=== PATIENT | female | born 1940 | race Caucasian/White ===

== ENCOUNTER 2020-10-27 11:01 | Emergency (ER) | payer MEDICARE ==
[~2020-10-27] VITALS: Ht 160 cm; Wt 62.1 kg
[2020-10-27] MEDS ORDERED: LEVOTHYROXINE13 MCG PO (12:06)
[2020-10-27] MEDS ORDERED: PAXIL10 MG PO (12:06)
[2020-10-27] MEDS ORDERED: REMERON30 MG PO (12:07)
[2020-10-27] MEDS ORDERED: PEPCID20 MG PO (12:07)
[2020-10-27] MEDS ORDERED: TRAZODONE HCL100 MG PO (12:08)
[2020-10-27] MEDS ORDERED: MULTI VITAMIN1 EACH PO (12:08)
[2020-10-27] MEDS ORDERED: ZOFRAN4 MG PO (14:48)
--- NOTE | 2020-10-27 17:45 | EKG ---
[facility] [address] [facility] [place], [place] [address] Signed AV dual-paced rhythm with frequent ventricular-paced complexes Abnormal ECG No previous ECGs available Confirmed by SEA SANDOVAL MD ([id number]) on 10/27/2020 5:45:38 PM Electronically Signed By: SEA SANDOVAL MD 10/27/20 1745 PATIENT NAME: SHARAD SCANLON Electrocardiogram DATE OF : 44 PHYSICIAN: SEA SANDOVAL MD REPORT #: [id number] REPORT IS CONFIDENTIAL AND NOT TO BE RELEASED WITHOUT AUTHORIZATION
== END 2020-10-27 15:17 | disposition home or self-care (01) ==
LOC: ED 11:01
DX: K92.0 Hematemesis (principal); K21.9 Gastro-esophageal reflux disease without esophagitis; Z79.899 Other long term (current) drug therapy
CPT/HCPCS: 36415; 74022; 80053; 81001; 83690; 84484; 85025; 85610; 85730; 93005; 93010; 99284-25; J7030

== ENCOUNTER 2020-12-26 11:37 | Emergency (ER) | payer MEDICARE ==
[~2020-12-26] VITALS: Ht 160 cm; Wt 62.1 kg
[~2020-12-26 11:37] MED LIST: LEVOTHYROXINE13 MCG PO; MULTI VITAMIN1 EACH PO; PAXIL10 MG PO; PEPCID20 MG PO; REMERON30 MG PO; TRAZODONE HCL100 MG PO; ZOFRAN4 MG PO
[2020-12-26] MEDS ORDERED: REMERON15 MG PO (11:58)
[2020-12-26] MEDS ORDERED: ZOLOFT100 MG PO (11:58)
--- NOTE | 2020-12-26 15:13 | EKG ---
[facility] [address] [place] [address] Signed Atrial-sensed ventricular-paced rhythm Abnormal ECG When compared with ECG of 27-OCT-2020 13:55, Vent. rate has decreased BY 12 BPM Confirmed by SEA SANDOVAL MD ([id number]) on 12/26/2020 3:13:16 PM Electronically Signed By: SEA SANDOVAL MD 12/26/20 1513 PATIENT NAME: SHARAD SCANLON MANUEL Electrocardiogram DATE OF : 44 PHYSICIAN: SEA SANDOVAL MD REPORT #: [id number] REPORT IS CONFIDENTIAL AND NOT TO BE RELEASED WITHOUT AUTHORIZATION
== END 2020-12-26 17:00 | disposition short-term general hospital (02) ==
LOC: ED 11:37
DX: I50.9 Heart failure, unspecified (principal); R77.8 Other specified abnormalities of plasma proteins; K21.9 Gastro-esophageal reflux disease without esophagitis; Z79.899 Other long term (current) drug therapy
CPT/HCPCS: 71045; 80053; 83690; 83735; 83880; 84484; 85025; 93005; 93010; 99285-25; C9803; U0003

== ENCOUNTER 2021-01-01 14:47 | Emergency (ER) | payer MEDICARE ==
[~2021-01-01] VITALS: Ht 160 cm; Wt 62.1 kg
[~2021-01-01 14:47] MED LIST changes: +REMERON15 MG PO; +ZOLOFT100 MG PO
[2021-01-01] MEDS ORDERED: CEFDINIR300 MG PO (15:12)
[2021-01-01] MEDS ORDERED: ATORVASTATIN CA80 MG PO (15:12)
[2021-01-01] MEDS ORDERED: LEVOTHYROXINE137 MC1 PO (15:13)
[2021-01-01] MEDS ORDERED: LISINOPRIL2.5 MG PO (15:13)
[2021-01-01] MEDS ORDERED: LASIX20 MG PO (15:13)
[2021-01-01] MEDS ORDERED: MIRTAZAPINE7.5 MG PO (15:15)
[2021-01-01] MEDS ORDERED: METOPROLOL SUCC25 MG PO (15:15)
[2021-01-01] MEDS ORDERED: SERTRALINE HCL50 MG PO (15:15)
[2021-01-01] MEDS ORDERED: QUETIAPINE FUMA25 MG PO (15:15)
[2021-01-01] MEDS ORDERED: SERTRALINE HCL100 MG PO (15:15)
[2021-01-01] MEDS ORDERED: SPIRONOLACTONE50 MG PO (15:16)
[2021-01-01] MEDS ORDERED: PANTOPRAZOLE SO40 MG PO (15:16)
[2021-01-01] MEDS ORDERED: LORAZEPAM0.5 MG PO (15:16)
[2021-01-01] MEDS ORDERED: ONDANSETRON ODT4 MG PO (16:23)
== END 2021-01-01 16:33 | disposition home or self-care (01) ==
LOC: ED 14:47
DX: R18.8 Other ascites (principal); K21.9 Gastro-esophageal reflux disease without esophagitis; Z79.899 Other long term (current) drug therapy
CPT/HCPCS: 99283

== ENCOUNTER 2021-02-04 22:01 | Observation (INO) | payer MEDICARE ==
[~2021-02-04] VITALS: Ht 160 cm; Wt 59.8 kg
--- NOTE | ~2021-02-04 | EKG ---
[facility] [address] [facility] [place], [place] [address] Draft EK completed, results pending confirmation PATIENT NAME: SYLWIATYSHARAD Electrocardiogram DATE OF : 44 PHYSICIAN: PRELIMINARY REPORT #: [id number] REPORT IS CONFIDENTIAL AND NOT TO BE RELEASED WITHOUT AUTHORIZATION
[~2021-02-04 22:01] MED LIST changes: +ATORVASTATIN CA80 MG PO; +CEFDINIR300 MG PO; +LASIX20 MG PO; +LEVOTHYROXINE137 MC1 PO; +LISINOPRIL2.5 MG PO; +LORAZEPAM0.5 MG PO; +METOPROLOL SUCC25 MG PO; +MIRTAZAPINE7.5 MG PO; +ONDANSETRON ODT4 MG PO; +PANTOPRAZOLE SO40 MG PO; +QUETIAPINE FUMA25 MG PO; -REMERON15 MG PO; +SERTRALINE HCL100 MG PO; +SERTRALINE HCL50 MG PO; +SPIRONOLACTONE50 MG PO
--- NOTE | 2021-02-05 03:48 | NUR ---
PT ARRIVED TO ROOM 127 AT 0235 VIA STRETCHER. PT ABLE TO STAND AND TRANSFER TO BED WITH 1-PA. PT IS ALERT, SLIGHTLY FORGETFUL OF DATE, BUT IS OTHERWISE ORIENTED. SLOW TO RESPOND TO QUESTIONS, FLAT AFFECT. DENIES PAIN. LUNGS CLEAR, RA. HR PACED. BOWEL TONES ACTIVE, ABDOMEN MODERATELY DISTENDED. SKIN APPEARS GROSSLY INTACT EXCEPT A SKIN TEAR TO RIGHT DORSAL HAND. NO EDEMA NOTED. IV INTACT AND PATENT. PT REPORTS THAT SHE HAS LOST WEIGHT UNINTENTIONALLY DUE TO LOSS OF APPETITE AND FREQUENT NAUSEA. PT REPORTS FEELING HUNGRY AT THIS TIME, ATE ~50% OF LUNCH BOX. SHE IS WORRIED ABOUT BECOMING NAUSEATED, PRN ZOFRAN GIVEN PROPHYLACTICALLY. BAIT MAN CONSULT ORDERED. BED ALARM SET FOR SAFETY. CALL LIGHT WITHIN REACH.
--- NOTE | 2021-02-05 04:59 | NUR ---
PT RESTING IN BED, NO APPARENT DISTRESS. RESPIRATIONS EVEN AND UNLABORED. HR:73, RR:13, SPO2:96% ON RA.
--- NOTE | 2021-02-05 06:08 | NUR ---
IN TO CHECK ON PT WHO IS AWAKE AT THIS TIME. UP TO BSC WITH 1-PA, PT IS SLIGHTLY UNSTEADY ON FEET. PT ABLE TO VOID 150ML AND PROVIDE OWN PERICARE. PT BACK TO BED, BED ALARM SET FOR SAFETY.
--- NOTE | 2021-02-05 08:00 | NUR ---
Spoke with Nataliia, very flat affect. States she has problems and want her life to be done. Spouse passed last June and she no longer wants to live. Pt also has ascities and this is uncomfortable. [place], feels there is something wrong with her as she feels she cannot love. Discussed counseling and grief. She did have an eval from [facility] yesterday and is schedule for counseling February 21. I was a kristin to speak with the daughter and she states pt has dementia and would d like a work up for this. Discussed she will need to go through her pcp and they can arrange this. She is also wanting HH, we discussed pt would not qualify as she has a cg who takes her out for walks and she really is not in need of PT. I suggested she discuss this with pcp in case pt declines. They both deny financial issues as pt has a trust to pay for a cg and she lives with her daughter. I spoke with CCU staff and they will schedule an appt for pt to see Dr. Jacques and request visit with neurology and HH.
--- NOTE | 2021-02-05 08:08 | NUR ---
pt reports nausea at this time. pt also reports that she normally takes mirilax daily for cronic constipation. pt talking with Shelby from discharge planning.
--- NOTE | 2021-02-05 08:16 | NUR ---
PT IS LAYING IS LAYING IN BED. SHE IS VERY SLOW TO RESPOND TO QUESTIONS. REPORTED SOME NAUSEA AND WE WILL BE WORKING WITH HER DOCTOR TO ORDER AN ADDITONAL ANTIEMTIC, DUE TO HER PRN ZOFRAN NOT BEING AVAIABLE TO HER TILL 0940. DOES NOT DESIRE TO HAVE BREASKFAST AT THIS TIME. WATER AT BEDSIDE TABLE. CALL LIGHT WITHIN REACH.
[2021-02-05] MEDS ORDERED: SEROQUEL100 MG PO (08:31)
--- NOTE | 2021-02-05 09:00 | NUR ---
PT GIVEN ANTIEMETIC MEDICATION. REQUESTED BREAKFAST APPETITE HAS IMPROVED. PT IS SITTING UP IN BED.
--- NOTE | 2021-02-05 10:30 | NUR ---
PATIENT WAS ABLE TO AMBULATE WITH STANDBY ASSIST TO THE RESTROOM. GIVEN ORAL CARE SUPPLIES AND SHE WAS ABLE TO PERFORM CARE INDEPENDELNTY WITH GUIDED ASSIST FROM THE NURSE. SHE NEEDS CUES WHEN PERFROMING CERTAIN ACTIVITES SHE SEEMS FORGETFUL. LINEN HAS BEEN CHANGED AND REPLACED WITH NEW ONES. PT AMBULATED WITH SBA TO THE CHAIR IN ROOM. WATER AT SIDE TABLE. CALL LIGHT WITHIN REACH.
--- NOTE | 2021-02-05 12:20 | NUR ---
PT WORKED WITH THE PHYSICAL THERAPIST AND WALKED DOWN THE HALLWAY AND BACK TO HER ROOM. PT IS SITTING IN CHAIR. REPORTS OF DECREASED NAUSEA AT THIS TIME. DAUGHTER IN THE ROOM SITTING BY HER ON THE COUCH. PHYSICAL THERPAIST RECOMMENDED A WALKER TO BE USED WHEN SHE ABULATES SHE WAS A SLIGHTLY UNSTEADY DURING HER EXERCISES. WALKER PLACED IN ROOM. CALL LIGHT WITHIN REACH. PT DOES NOT DESIRE TO VOID AT THIS TIME. PT DOES NOT REPORT ANY PAIN.
--- NOTE | 2021-02-05 12:33 | NUR ---
PT MEDICATION COMPLETED, IS NOW SALINE LOCKED. CALL LIGHT WITHIN REACH.
--- NOTE | 2021-02-05 13:07 | NUR ---
PT NOW REPORTS SLIGHT NAUSEA. ZOFRAN IV ADMINISTERED. SHE IS SITTING UP IN THE CHAIR AND IS ABLE TO EAT WITHOUT DIFFICULTY. HAS REQUESTED SALT PACKETS FOR HER FOOD BUT GAVE HER DRESSING FOR HER SALAD INSTEAD.
--- NOTE | 2021-02-05 13:13 | NUR ---
PT REPORTS SHE IS FULL AND WOULD LIKE TO FINISH THE REMAINDER OF HER LUNCH AT A LATER TIME. I HAVE PLACED HER SALAD IN A ZIPLOCK BAG WITH PT LABEL IN MINI CCU FRIDGE. CALL LIGHT WITHIN REACH.
--- NOTE | 2021-02-05 16:14 | NUR ---
PER PT'S DAUGHTER, PT ONLY TAKES SEROQUEL AT BEDTIME. MED ORDER UPDATED IN EMAR.
--- NOTE | 2021-02-05 16:18 | NUR ---
PATIENT WAS ABLE TO VOID WITH SBA. SHE AMBULATED TO THE RECLINER. CHAIR ALARM PLACED FOR SAFETY. DAUGHTER IN ROOM WITH HER. SHE DESIRED SOME PUDDING AND WAS ABLE TO EAT IT ALL. WILL CONTINUE TO MONITOR FOR NAUSEA SHE HAD ORIGNINALLY REPORTED FEEELING NAUSEOUS BUT FOOD COULD HELP REDUCE THE SENSATIONS, TO WHY SHE REQUESTED PUDDING. WATER AT BEDSIDE TABLE. CALL LIGHT WITHIN REACH. NO ADDITIONAL NEEDS AT THIS TIME.
--- NOTE | 2021-02-05 17:15 | NUR ---
PATIENT IS SITTING UP IN CHAIR. PT WAS ALERT, COMMUNICATIVE. SON IN LAW SITTING NEXT TO HER ON COUCH. PT REPORTS NAUSEA IMPROVEMENT. DINNER HAS BEEN ORDERED. CHAIR ALARM IS STILL IN PLACE. CALL LIGHT WITHIN REACH. PT SEEMED WORRIED ABOUT FEELING NAUSEOUS AGAIN, STATED SHE DID NOT WANT TO EAT AND BE RUSHED TO TRANSFER TO THE FLOOR. REASSURED HER WE DID NOT HAVE TO TRANSFER HER RIGHT AWAY AND COULD GO AHEAD AND ORDER HER MEAL DESIRED. ALL QUESTIONS ANSWERED.
--- NOTE | 2021-02-05 19:53 | NUR ---
REPORT RECEIVED FROM SUSANNE RN, WILL CONTINUE PLAN OF CARE.
--- NOTE | 2021-02-05 21:22 | NUR ---
THIS RN IN TO ASSESS PT AND ADMINISTER ORDERED MEDICATIONS. PT LAYING IN BED AWAKE AND ALERT. PT DENIES ANY PAIN OR NAUSEA AT THIS TIME. ORDERED MEDICATIONS ADMINSITERED AT THIS TIME, VITALS TAKEN, PT ASSESSED. PT IV FLUSHED AND IS PATENT, PT SALINE LOCKED. PT REQUESTED TO TURN OFF LIGHTS IN ROOM TO HELP HER SLEEP. CALL LIGHT IN REACH, BED ALARM ON, BED IN LOWEST POSITION, PT ON ROOM AIR. WILL CONTINUE PLAN OF CARE.
--- NOTE | 2021-02-05 22:50 | NUR ---
RESPONDED TO PT CALL LIGHT, PT STATED SHE NEEDED TO USE THE BATHROOM. PT ABLE TO GET UP WITH ASSISTANCE AND SLOWLY WALK OVER TO THE BATHROOM WITHOUT HELP. PT VOID MISSED URINAL HAT AND HAD 1 UNMEASURED VOID. PT ABLE TO GET BACK INTO BED AND ONLY NEEDED HELP GETTING HER LEGS UP ONTO THE BED. PT REPORTS NO FURTHER NEEDS AND WAS REPOSITIONED ON THE BED. WILL CONTINUE PLAN OF CARE. CALL LIGHT IN REACH, BED IN LOWEST POSITION, BED ALARM ON.
--- NOTE | 2021-02-06 04:28 | NUR ---
PATIENT CALLED FOR ASSISTANCE TO THE BSC. PATIENT WAS ABLE TO SELF TRANSFER TO THE BSC, SLIGHTLY UNSTEADY. PATIENT WAS DIAPHORETIC. LINENS AND GOWN CHANGED. PATIENT VOIDED AND RETURNED TO BED. WATER PROVIDED PER REQUEST. ORAL TEMP WNL. BED ALARM ACITVE AND CALL LIGHT IN REACH.
--- NOTE | 2021-02-06 05:40 | NUR ---
THIS RN IN TO ASSESS PT. PT LAYING IN BED SLEEPING AND AWOKE EASILY. PT ASSESSED AND THIS TIME AND VITALS TAKEN. PT PROVIDED WITH FRESH WATER PER HER REQUEST WELL. PT REPORTS NO FURTHER NEEDS WHEN ASKED AND WENT BACK TO SLEEP, WILL CONTINUE PLAN OF CARE. CALL LIGHT IN REACH, BED IN LOWEST POSITION, BED ALARM ON. PT ON ROOM AIR, SPO2 WAS 93% WHEN ASSESSED.
--- NOTE | 2021-02-06 07:15 | NUR ---
Report received, orders acknowledged. Patient resting in bed, respirations even and unlabored. Call light within reach.
--- NOTE | 2021-02-06 08:00 | NUR ---
Patient laying in bed awake. Denies pain or nausea. Reports "I slept pretty good." Vital signs taken, assessment complete. Patient up to chair with SBA, steady on feet. AM medications given. Patient given zofran prior to breakfast per patient request due to nausea with meals yesterday. Medication given. Breakfast delivered. Patient begins eating meal, denies further needs at this time. Call light within reach.
--- NOTE | 2021-02-06 08:42 | NUR ---
v/s done and recorded
--- NOTE | 2021-02-06 09:00 | NUR ---
Patient ate 90% of breakfast and denies nausea. Patient up to toilet due to need to urinate, marginal amount of urine noted with small BM smear. Patient returned to chair with SBA, steady on feet. New attends in place per patient request. Denies further needs, call light within reach.
--- NOTE | 2021-02-06 09:45 | NUR ---
PT WAS ABLE TO AMBULATE WITH SBA TO THE RESTROOM. SHE HAD A BM, AND WAS ABLE TO WIPE INDEPENDENTLY. SHE REQUESTED TO LAY DOWN. TRANSFERRED HER TO THE BED. MEDICATION IS COMPLETE, SALINE LOCKED. BED ALARM SET. CALL LIGHT WITHIN REACH. DESIRED A HEATING PAD AND PLACED THAT ON HER ADBOMEN AREA FOR COMFORT. SHE DID NOT REPORT ANY PAIN OR NAUSEA AT THIS TIME. NO ADDITIONAL NEEDS AT THIS TIME.
--- NOTE | 2021-02-06 10:45 | NUR ---
Lab in room to draw blood to reassess sodium level
--- NOTE | 2021-02-06 11:48 | NUR ---
Patient sleeping in bed, respirations even and unlabored. Call light within reach.
--- NOTE | 2021-02-06 12:30 | NUR ---
Dr. Correa in room to assess patient and discuss POC
[2021-02-06] MEDS ORDERED: ONDANSETRON ODT4 MG SL (12:33)
--- NOTE | 2021-02-06 12:43 | NUR ---
pt is dressed and ready to be discharged.
--- NOTE | 2021-02-06 13:16 | EKG ---
[facility] [address] [facility] [place], [place] [address] Signed Ventricular-paced rhythm Abnormal ECG When compared with ECG of 04-FEB-2021 22:14, (Unconfirmed) No significant change was found Confirmed by JANA OLSEN DO ([id number]) on 02/06/2021 1:16:31 PM Electronically Signed By: JANA OLSEN DO 02/06/21 1316 PATIENT NAME: KEVLIN SCANLONSIRI JACKSON Electrocardiogram DATE OF : 44 PHYSICIAN: JANA OLSEN DO REPORT #: [id number] REPORT IS CONFIDENTIAL AND NOT TO BE RELEASED WITHOUT AUTHORIZATION
--- NOTE | 2021-02-06 13:30 | NUR ---
Discharge instructions given to patient. All questions answered to best of ability. Patient verbalizes understanding of follow-up appt. IV D/C'd, vital signs taken. Patient denies needs at this time. Plan for patient's daughter to take patient home.
--- NOTE | 2021-02-06 15:34 | NUR ---
Pt plan s on dc to home today. Pt smiling states she is much better. Denies needs for dc. Cane in room and she believes it is hers brought in by daughter. Cont. plan to follow up with PCP on dc for further OP workup.
--- NOTE | 2021-02-06 16:30 | NUR ---
Patient leaves unit via wheelchair with daughter and nursing staff. All patient belongings collected.
[2021-02-07] MEDS ORDERED: LEVOTHYROXINE137 MCG PO (10:51)
[2021-02-07] MEDS ORDERED: REGLAN5 MG PO (13:59)
== END 2021-02-06 16:35 | disposition home or self-care (01) ==
LOC: ED 22:01 → CCU 22:02
PROVIDERS: ADMIT Student in an Organized Health Care Education/Training Program; ATTEND Student in an Organized Health Care Education/Training Program
DX: E87.1 Hypo-osmolality and hyponatremia (principal); E86.0 Dehydration; K74.60 Unspecified cirrhosis of liver; I51.81 Takotsubo syndrome; I10 Essential (primary) hypertension; F32.9 Major depressive disorder, single episode, unspecified; F41.9 Anxiety disorder, unspecified; K21.9 Gastro-esophageal reflux disease without esophagitis; E78.5 Hyperlipidemia, unspecified; Z95.0 Presence of cardiac pacemaker; Z20.822 Contact with and (suspected) exposure to COVID-19
CPT/HCPCS: 36415; 70450; 71045; 80048; 80053; 81001; 82140; 83735; 84295; 84484; 85025; 93005; 93010; 97162; 99285-25; C9803; J2405; J3475; J7030; J7040; U0003

== ENCOUNTER 2021-02-07 10:23 | Emergency (ER) | payer MEDICARE ==
[~2021-02-07] VITALS: Ht 160 cm; Wt 59.4 kg
[~2021-02-07 10:23] MED LIST changes: +ONDANSETRON ODT4 MG SL; +SEROQUEL100 MG PO
[2021-02-07] MEDS ORDERED: LEVOTHYROXINE137 MCG PO (10:51)
[2021-02-07] MEDS ORDERED: REGLAN5 MG PO (13:59)
--- NOTE | 2021-02-07 14:29 | EKG ---
[facility] [address] [place] [address] Signed AV dual-paced rhythm Abnormal ECG When compared with ECG of 04-FEB-2021 22:19, Vent. rate has increased BY 9 BPM Confirmed by SEA SANDOVAL MD ([id number]) on 02/07/2021 2:29:35 PM Electronically Signed By: SEA SANDOVAL MD 02/07/21 1429 PATIENT NAME: SYLWIATYSHARAD Electrocardiogram DATE OF : 44 PHYSICIAN: SEA SANDOVAL MD REPORT #: [id number] REPORT IS CONFIDENTIAL AND NOT TO BE RELEASED WITHOUT AUTHORIZATION
[2021-02-08] MEDS ORDERED: SPIRONOLACTONE50 MG PO (07:27)
== END 2021-02-07 14:31 | disposition home or self-care (01) ==
LOC: ED 10:23
DX: K92.0 Hematemesis (principal); K21.9 Gastro-esophageal reflux disease without esophagitis; Z79.899 Other long term (current) drug therapy
CPT/HCPCS: 74022; 80053; 81001; 83690; 84484; 85025; 85610; 85730; 93005; 93010; 96374; 99284-25; J2405; J7030

== ENCOUNTER 2021-02-07 20:33 | Inpatient (IN) | payer MEDICARE ==
[~2021-02-07] VITALS: Ht 160 cm; Wt 57.4 kg
[~2021-02-07 20:33] MED LIST changes: +LEVOTHYROXINE137 MCG PO; +REGLAN5 MG PO
--- NOTE | 2021-02-07 23:00 | NUR ---
pt ARRIVES TO THE UNIT VIA STRETCHER. pt's DAUGHTER IS ALSO IN ROOM. PT IS ALERT AND ORIENTED, ALTHOUGH SLOW TO RESPOND. PT WAS ABLE TO AMBULATE WITH SBA TO BED. PT APPEARS SLIGHTLY CONFUSED TO WHAT IS ASKED OF HER.
--- NOTE | 2021-02-07 23:50 | NUR ---
ASSESSMENT COMPLETE. CMS INTACT, VSS. PT REPORTS NO TENDERNESS IN ABDOMEN WITH PALPATION AND STATES NO PAIN, ONLY "PRESSURE", MODERATE ADOMINAL DISTENTION NOTED. 1+EDEMA BILATERAL ANKLES. SKIN INTEGRITY OVERALL GOOD; ONLY MINOR SCRATCHES AND BRUISES ON ARMS (FROM PREVIOUS HOSPITALIZATION IVS). BOWEL TONES SOMEWHAT HYPOACTIVE AT THIS TIME. LUNG SOUNDS CLEAR, HEART IS PACED. PACEMAKER WAS PLACED IN 2012. MED ADMINISTRATION, PT IS CAUTIOUS D/T FEAR OF NAUSEA BUT DOES TAKE PO MEDS. PT REQUESTS THAT SHADES IN ROOM BE CLOSED AND ALL LIGHTS BE TURNED OFF. EDUCATED PT ABOUT HOW TO USE CALL LIGHT AND BED. PT DENIES FURTHER NEEDS AT THIS TIME. CALL LIGHT AND BEDSIDE TABLE WITHIN REACH
--- NOTE | 2021-02-08 00:20 | NUR ---
DISCUSSED WITH PT, EYE MASK BROUGHT TO HELP BLOCK OUT LIGHT FOR SLEEP BUT PT IS ALREADY SLEEPING. EYE MASK LEFT ON BEDSIDE TABLE. BED ALARM ON FOR SAFETY.
--- NOTE | 2021-02-08 00:40 | NUR ---
CALLED DR SANDOVAL RE: LOW BP. WILL CONTINUE TO MONITOR AT THIS TIME.
--- NOTE | 2021-02-08 02:15 | NUR ---
BP HAS CONTINUED TO REMAIN HYPOTENSIVE. DR SANDOVAL INFORMED. NEW ORDERS FOR IVF; SEE EMAR. IN ROOM TO START IVF. PT IS SLEEPING WITH EYES CLOSED, EVEN UNLABORED BREATHING NOTED. CALL LIGHT REMAINS WITHIN REACH. NO APPARENT SIGNS OF DISTRESS.
--- NOTE | 2021-02-08 05:57 | NUR ---
CHECKED ON PT, PT UP TO TOILET TO ATTEMPT TO VOID. PT WAS UNSUCCESSUL. PT RESPONSES REMAIN SLOW ALTHOUGH SHE DOES ASK FOR THINGS APPROPRIATELY. SBA TO TOILET AND BACK. BOWEL TONES ACTIVE AT THIS TIME. BP SLOWLY IMPROVING. CALL LIGHT WITHIN REACH.
--- NOTE | 2021-02-08 07:26 | NUR ---
RECIEVED REPORT FROM SEED EXPERT. PT AWAKE AND IN BED. HEAD ELEVATED. WILL CONTINUE TO MONITOR CLOSELY.
[2021-02-08] MEDS ORDERED: SPIRONOLACTONE50 MG PO (07:27)
--- NOTE | 2021-02-08 08:41 | NUR ---
ASSESSMENT COMPLETE. MD IN TO SEE PT. ASSISTED PT UP TO USE REST ROOM. PASSING GAS AND URINATED IN CAMMODE. PT REPORTED THE FEELING OF BEING FULL BUT REPORTS NO PAIN OR SHORT OF BREATH. STOMACH DISTENDED AND SKIN IS TIGHT. ACTIVE BOWEL TONES PRESENT. PT REPORTS NAUSEA. ADMINISTERED SOFRAN PRN AND PROTONIX. NO OTHER CONCERNS AT THIS TIME. PT LAYING IN BED WITH HED OF BED ELEVATED. HEATED BLANKET PLACED. CALL LIGHT WITHIN REACH. WILL CONTINUE TO MONITOR CLOSELY.
--- NOTE | 2021-02-08 10:00 | NUR ---
DR BRUNO IN TO ASSESS PT AND DISCUSS PLAN OF CARE. PLAN FOR PT IS TO PREP FOR OR TO GET EGD. PT UNDERSTANDS AND AGREES TO PROCEDURE.
--- NOTE | 2021-02-08 11:00 | NUR ---
Patient leaves unit for EGD
--- NOTE | 2021-02-08 11:18 | NUR ---
Patient returns to room from OR. Dr. Kapoor in room to discuss POC with daughter.
--- NOTE | 2021-02-08 11:39 | CONS ---
[facility] [address] [place], [place] [address] Signed DATE OF CONSULTATION: 02/08/2021 CHIEF COMPLAINT: Hematemesis. HISTORY OF PRESENT ILLNESS: Nataliia is a 80-year-old female originally from [facility]. More recently, she had been living out in [place], [place]. Unfortunately, her last fall from esophageal cancer. She has developed very complex grief. In fact, she has developed stress cardiomyopathy. She moved out to [place], [place] to be with her daughter. She had come in our emergency room in [place], [place] with chest pain and was sent over to [facility]. She had heart failure with ascites and she was anemic with a hemoglobin of 10.9. She ended up with a paracentesis for the ascites and was said to have cirrhosis of the liver. There is mention of a cardiac cath apparently that was negative. She had been discharged back to [place]. She came back to our emergency room with some hyponatremia and the laxatives have been held. She came back again with nausea, vomiting, and hematemesis x2. She has been admitted to our Internal Medicine Service and has been hemodynamically stable. They have been cutting back on her mental health medications. I have been asked to see her as a general surgeon home economist consumer service to consider upper endoscopy given her new diagnosis of cirrhosis. Apparently, she does not drink and there is no history of viral hepatitis. PAST MEDICAL HISTORY: Cirrhosis, depression, anxiety, hypothyroidism, gastroesophageal reflux disease, stress cardiomyopathy, lower extremity edema and complex grief. PAST SURGICAL HISTORY: Includes pacemaker. SOCIAL HISTORY: She does not smoke or drink. She lives with her daughter, Ashli at [phone]. Nataliia no longer drives. She prefers the [facility]. She is now a . Dr. Any Puga is her primary care provider and she was referred to Dr. Luna Woodson as her freedom of information officer. Apparently, she has been asked to see a technical aid, but has yet to make an appointment because technical aid in our region. FAMILY HISTORY: Dementia. REVIEW OF SYSTEMS: We did our best to review 10 systems with Nataliia. She has depressed affect and is slow, but she does answer appropriately, but she does have trouble getting her thoughts. She did ask me to contact her daughter and I tried but they will not accept our phone call. Electronically Signed By: LIZBETH BRUNO MD 02/08/21 1139 PATIENT NAME: NATALIIA SCANLON CONSULTATION DATE OF : 44 REPORT #: [id number] PHYSICIAN: LIZBETH BRUNO MD PCP: ANY PUGA MD REPORT IS CONFIDENTIAL AND NOT TO BE RELEASED WITHOUT AUTHORIZATION [address] [address] Signed ALLERGIES: None. MEDICATIONS: Zofran, Reglan, multivitamin, mirtazapine, sertraline, atorvastatin, Lasix, lisinopril, metoprolol, Seroquel, and levothyroxine. PHYSICAL EXAMINATION: VITAL SIGNS: Blood pressure is 113/63, heart rate 76, respiratory rate is 12. She is 93% on room air. She is 98.5 degrees. She is 5 feet 3 inches tall, 61 kg. GENERAL: Nataliia is a 80-year-old female who appears thin and cachectic. She has mildly decreased affect and she is slow to respond. LUNGS: Generally clear to auscultation. HEART: Paced. ABDOMEN: Mildly protuberant, but soft, nontender. No fluid wave. LABORATORY DATA: Her white blood cell count is 9.8, hemoglobin was 11.2, it is now 9.9 after IV fluids, neutrophils 73, platelets 410. BUN 18, creatinine 0.79. COVID negative. Liver function tests negative. Albumin is 3.1. Her left ventricular ejection fraction was around 40 to 45% over at [facility]. RADIOGRAPHIC STUDIES: None. ASSESSMENT/PLAN: Nataliia is a 80-year-old female who presents with nausea, vomiting, and hematemesis x2. She thinks there was blood in the vomitus. She has generally been stable here in our hospital. She is quite debilitated as reviewed above. I have been asked to see her for upper endoscopy. I think she can probably do that today with help of our anesthesia provider. I have reviewed upper endoscopy with Nataliia in detail. She tells me she has had colonoscopies in the past, so she is familiar with that process. She understands we will be able to take some pictures and biopsies and some more objective information for the Internal Medicine Service. She has expressed understanding and agrees to above plan. Lizbeth Bruno MD ALB/MODL Electronically Signed By: LIZBETH BRUNO MD 02/08/21 1139 PATIENT NAME: NATALIIA SCANLON CONSULTATION DATE OF : 44 REPORT #: [id number] PHYSICIAN: LIZBETH BRUNO MD PCP: ANY PUGA MD REPORT IS CONFIDENTIAL AND NOT TO BE RELEASED WITHOUT AUTHORIZATION [facility] [address] [place] [address] Signed /[id number] cc: DO Lizbeth Ross MD Deborah Woodbury, MD Copies: LIZBETH BRUNO MD ~ Electronically Signed By: LIZBETH BRUNO MD 02/08/21 1139 PATIENT NAME: NATALIIA SCANLON CONSULTATION DATE OF : 44 REPORT #: [id number] PHYSICIAN: LIZBETH BRUNO MD PCP: ANY PUGA MD REPORT IS CONFIDENTIAL AND NOT TO BE RELEASED WITHOUT AUTHORIZATION
--- NOTE | 2021-02-08 11:45 | NUR ---
Bedside report received from METAL ROASTERLeona. Patient laying in bed, awake and alert. 2LNC in place, SpO2 of 100%, HR in the 70's. Patient denies pain. Daughter in room at bedside. Call light within reach.
--- NOTE | 2021-02-08 11:48 | NUR ---
RECEIVED REPORT FROM OR NURSE. PT LAYING IN BED WITH HEAD ELEVATED. PT RECIEVEING OXYGEN VIA NASAL CANNULA. BLOOD PRESSURE IN 80S SYSTOLIC. PT DENIES THE URGE TO VOID. RESPIRATIONS IN THE LOW TEENS. PT ORIENTED TO TIME AND PLACE. DAUGHTER AT BEDSIDE WITH PT. DR BRUNO IN TO SPEAK WITH DAUGHTER AND PT ABOUT IRRITATED HIATAL HERNIA AND IRRITATION TO THE ESOPHAGUS. NO OTHER CONCERNS AT THIS TIME. CALL LIGHT WITHIN REACH. WILL CONTINUE TO MONITOR CLOSELY.
--- NOTE | 2021-02-08 12:00 | NUR ---
02/08/21 1200 [place] 1118: PATIENT UNRESPONSIVE ON ADMIT TO RECOVERY. BP LOW. GIVEN DOSE OF EPHEDRINE BY FORENSIC LOCKSMITH. O2 SAT 89%. OXYGEN TURNED UP TO 6L/MIN. PATIENT BREATHING ON OWN. 1123: ATTEMPTED TO WAKE PATIENT. PATIENT UNRESPONSIVE. 1125: O2 TURNED DOWN TO 4 L/MIN. 1132: PATIENT WOKE SELF UP COUGHING. THEN FELL BACK TO SLEEP. 1135: BP INCREASED. PATIENT AWAKE AGAIN. COUGHING INTERMITTENTLY. DENIES PAIN. DAUGHTER AT BEDSIDE. O2 TURNED DOWN TO 2 L/MIN. 1145: PATIENT AWAKE. DENIES PAIN. BP INCREASED STILL. REPORT GIVEN TO CCU RN AND STUDENT RN.
--- NOTE | 2021-02-08 12:08 | NUR ---
PT BACK FROM ENDO AND COMPLETE PT HAS BEEN MOVED MOVED TO A FULL CLEAR LIQUID LUNCH HAS BEEN ORDERED. REQUEST FOR NO RED DYE. RESTING IN ROOM WITH HEAD ELEVATED. DAUGHTER AT BEDSIDE. STILL DROWSY. NO CONCERNS AT THIS TIME. WILL MONITOR CLOSELY.
--- NOTE | 2021-02-08 13:12 | NUR ---
CLEAR LIQUID TRAY DELIVERED. PT SITTING IN BED EATING LUNCH WITH SMALL SLOW BITES. DAUGHTER AT BED SIDE. BP'S IN THE 90S TO LOW 100'S SYSTOLIC. PT DENIES NAUSEA WITH CLEAR LIQUID TRAY. PT REPORTS IRRITATION IN THROAT FROM EGD. NO OTHER CONCERNS AT THIS TIME. CALL LIGHT WITHIN REACH. WILL CONTINUE TO MONITOR CLOSELY.
--- NOTE | 2021-02-08 13:36 | NUR ---
Patient up to BSC with SBA, steady on feet. Voids 90 mls of concentrated urine. Patient returns to bed with assist, adjusted for comfort. Patient denies pain or nausea after eating meal. Patient ate 75% of jello cup and a few sips of tea. Requests for tray to remain in room. Patient denies further needs, call light within reach.
--- NOTE | 2021-02-08 17:23 | NUR ---
PT TOLERATED CLEAR LIQUID LUNCH WELL. ORDERED PT FULL LIQUID DIET FOR DINNER INCLUDING MASHED POTATOES AND GRAVY. WILL MONITOR CLOSELY TO SEE HOW PT TOLERATES. PT REPORTS TO HAVING TO USE THE REST ROOM. DISCONNECTED PT AND WRAPPED UP HER IV. PT AGREED TO SHOWER AFTER USING THE COMMODE. PT STATES "SHE HAD A BAD EXPERIENCE IN THE PAST IN A HOSPITAL SHOWER AND SHE WILL JUST HAVE TO TELL HERSELF TO GO FOR IT." PT TOLERATED SHOWER AND WAS VERY TALKATIVE. SHE WOULD RESPOND SLOWLY BUT CONTINOUSLY TALKED ABOUT HER RECENTLY PAST AND HER DAUGHTER AND HOW SHE HAS BEEN VERY SHANE TO HAVE BOTH OF THEM. SHE IS NOT FLAT WHEN SHE TALKED AND SMILED A FEW TIMES WHEN SHE TALKED OF HER . ASSISTED PT WITH BLOW DRYING HER HAIR AND GOT HER TO SIT IN THE CHAIR WITH HER LEGS ELEVATED AND A SHEET COVERING HER LEGS. CALL LIGHT WITHIN REACH. WILL CONTINUE TO MONITOR CLOSELY.
--- NOTE | 2021-02-08 17:53 | NUR ---
DELIVERED PT DINNER. PT WAS SITTING IN THE CHAIR. DAUGHTER AT BEDSIDE. CONCERNED WITH TOMATO SOUP SINCE IT WAS RED. PT REPORTS "SHE WAS GLAD BECAUSE SHE WAS HUNGRY." PT EATING DINNER IN HER CHAIR WITH FEET ELEVATED. CALL LIGHT WITHIN REACH. WILL CONTINUE TO MONIOR CLOSELY.
--- NOTE | 2021-02-08 18:30 | NUR ---
Patient up to toilet with 1PA. Large formed BM produced, unmeasured void. Patient reports cramping in abdomen, requests to return to bed. Patient now laying in bed, adjusted for comfort. Requests blinds drawn, which is accommodated. Patient denies further needs, call light within reach.
--- NOTE | 2021-02-08 19:30 | NUR ---
REPORT RECEIVED FROM DAY SHIFT RN. PT IN BED RESTING WITH EYES CLOSED. HR 70'S, PACED.
--- NOTE | 2021-02-08 20:45 | NUR ---
IN TO SEE PT AND DO ASSESSMENT, AWAKE IN BED. ASKED HOW SHE IS DOING AND SHE STATES "IM NOT DOING VERY WELL RIGHT NOW", DENIES PAIN/NAUSEA BUT DOES STATE "I JUST CANT MOVE IN THIS BED." HELPED PT WITH REPOSITIONING, THEN UP TO BSC TO VOID AND BACK TO BED. PT IS ALERT AND ORIENTED, SLOW TO RESPOND WITH ANSWERS TO QUESTIONS, ALTHOUGH ANSWERS ARE APPROPRIATE. EXPRESSES FRUSTRATIONS REGARDING CURRENT HEALTH SITUATION AND DIAGNOSES. HS MEDS GIVEN. PT ALSO EXPRESSES FRUSTRATION WITH NOT SLEEPING AND NOT BEING ABLE TO SLEEP WELL IN THE HOSPITAL. REASSURED PT THAT EFFORT WOULD BE MADE TO ALLOW HER TO SLEEP AND KEEP ENVIRONMENT QUIET ALTHOUGH AT TIMES STAFF WILL NEED TO COME IN AND CHECK ON HER, PT AGREEABLE. LUNGS CLEAR. ABDOMEN VERY DISTENDED AND FIRM. WANTING TO TRY TO SLEEP NOW, CALL LIGHT IN HAND.
--- NOTE | 2021-02-08 23:39 | NUR ---
PT CALLS FOR HELP REPOSITIONING. DECIDES TO TRY A SNACK. WAS ABLE TO EAT A WHOLE PUDDING WITHOUT DIFFICULTY. READY TO TRY TO SLEEP AGAIN.
--- NOTE | 2021-02-09 01:15 | NUR ---
PT CALLS TO HAVE HELP REPOSITIONING AGAIN. PT RESTLESS, CAN NOT FIGURE OUT WHAT IS MAKING HER UNCOMFORTABLE AND RESTLESS, DENIES PAIN, NAUSEA. APPROX 45 MINUTES SPENT TRYING TO HELP HER GET COMFORTABLE. OFFERED HER MELATONIN TO HELP HER SLEEP AND SHE DID NOT WANT IT "THAT DOESNT EVER WORK". EVENTUALLY PATIENT STATED SHE WOULD TRY TO SLEEP. CALL LIGHT IN HAND.
--- NOTE | 2021-02-09 03:00 | NUR ---
PT APPEARS TO BE SLEEPING, RESP EVEN AND UNLABORED, EYES CLOSED.
--- NOTE | 2021-02-09 05:30 | NUR ---
LAB IN TO DRAW, ASSESSMENT DONE.
--- NOTE | 2021-02-09 07:45 | NUR ---
Patient's daughter in room to visit. Patient laying in bed, awake and alert. Patient reports "I didn't sleep very well." Vital signs taken, assessment complete. Patient up to toilet to void, 90 mls of concentrated urine noted. Patient uses 1PA to ambulate. Patient returns to the chair, warm blankets provided. Patient denies pain or nausea. Patient affect flat, slow to respond. Call light within reach.
--- NOTE | 2021-02-09 07:54 | OR ---
[facility] [address] [place], [place] [address] Signed DATE OF OPERATION: 02/08/2021 SURGEON: Lizbeth Bruno MD PREOPERATIVE DIAGNOSES: 1. Hematemesis. 2. Anemia. 3. Gastroesophageal reflux disease. POSTOPERATIVE DIAGNOSES: 1. Mild to moderate diffuse gastritis. 2. Moderate-sized hiatal hernia (37-30 cm). 3. Moderate to severe distal esophagitis. PROCEDURES: EGD with CLOtest and biopsies of the antrum. ESTIMATED BLOOD LOSS: None. FINDINGS: No evidence of any varices. INDICATIONS: Nataliia is a 80-year-old female whose from esophageal cancer last fall. She has been in significant grief ever since. In fact, she developed stress-induced cardiomyopathy with liver failure. She ended up in our [facility] requiring paracentesis and cardiac catheterization. The cardiac cath was negative. Left ventricular ejection fraction was around 40-45%. She was anemic with a hemoglobin around 10.9 at that time. She is known to have acid reflux. She was sent back to [place], [place]. She became hyponatremic from her diuretics and was in the hospital yesterday. Those were stopped, but she came back with nausea, vomiting, and hematemesis x2. She has been admitted to the Internal Medicine Service. She has been hemodynamically stable with no further hematemesis. I have been asked to see her as the general surgeon on-call for consideration of upper endoscopy. Her daughter is Ashli assured me that her mother takes Protonix for the acid reflux. I had met with Nataliia and her daughter and we had a long discussion regarding the current findings. We discussed upper endoscopy relative to her previous colonoscopies. She understands there is risk including, but not limited to gas bloating, crampy abdominal pain, bleeding, perforation requiring surgery, and missed diagnosis. She also understands the need for Electronically Signed By: LIZBETH BRUNO MD 02/09/21 0754 PATIENT NAME: NATALIIA SCANLON OPERATIVE REPORT DATE OF : 44 REPORT #: [id number] PHYSICIAN: LIZBETH BRUNO MD PCP: RENETTA PUGA MD REPORT IS CONFIDENTIAL AND NOT TO BE RELEASED WITHOUT AUTHORIZATION [facility] [address] [place], [place] [address] Signed monitored anesthesia care given her advanced age and acute issues. She and her daughter had expressed understanding and wished to proceed. PROCEDURE NOTE: Nataliia was taken into our endoscopy suite and placed in the supine semi-recumbent position. The posterior oropharynx was anesthetized with lidocaine spray. A bite block was utilized for the case. She was given IV sedation with propofol per our nurse coating mixer tender. The adult gastroscope was introduced and advanced out into the third portion of the duodenum under direct visualization of camera without difficulty. The duodenum and pyloric channel were unremarkable. The stomach showed some [id number]-[id number] diffuse erythematous changes. We took a biopsy of the antrum for pathologic review as well as CLOtest. She has chronic appearing benign polyps in the proximal stomach from her proton-pump inhibitor. Upon retroflexion of scope, we could see a imlwwpxq-br-ukghe sized hiatal hernia. We measured that out roughly 37 back to 30 cm. We looked carefully and found no ulcerations in the pyloric bulb or stomach. There was no Nadia-Mcdaniel tear. However, she has significant distal esophagitis. It is covered in exudate. We did not see any obvious varices underneath this. We decided not to biopsy at this time. She could certainly increase her proton-pump inhibitor to twice a day for 4-8 weeks and once it settles down, she could have a repeat upper endoscopy. The middle and upper esophagus were unremarkable. After this, the gas was suctioned out and the gastroscope removed. Nataliia tolerated the procedure quite well. RECOMMENDATIONS: Nataliia will be returned to her room Internal Medicine Service, she can start on her diet. I did review this in detail with her daughter. Lizbeth Bruno MD ALB/MODL /[id number] cc: MD Lizbeth Patterson MD Lindsay Frye, Electronically Signed By: LIZBETH BRUNO MD 02/09/21 0754 PATIENT NAME: NATALIIA SCANLON OPERATIVE REPORT DATE OF : 44 REPORT #: [id number] PHYSICIAN: LIZBETH BRUNO MD PCP: RENETTA PUGA MD REPORT IS CONFIDENTIAL AND NOT TO BE RELEASED WITHOUT AUTHORIZATION [address] [address] Signed Copies: LIZBETH BRUNO MD ~ Electronically Signed By: LIZBETH BRUNO MD 02/09/21 0754 PATIENT NAME: NATALIIA SCANLON OPERATIVE REPORT DATE OF : 44 REPORT #: [id number] PHYSICIAN: LIZBETH BRUNO MD PCP: RENETTA PUGA MD REPORT IS CONFIDENTIAL AND NOT TO BE RELEASED WITHOUT AUTHORIZATION
--- NOTE | 2021-02-09 08:30 | NUR ---
Breakfast delivered. Patient begins to eat meal slowly. Patient denies pain or nausea with eating. After eating half the meal, patient begins to cough. States "I think it went down the wrong pipe." HR in the 80's, SpO2 of 95%. Patient drinks a sip of water, states "I feel much better." Patient up to ambulate hallway. Patient using walker with SBA. Patient movements are slow. Patient states "I can't walk any further." Therapeutic communication used to encourage patient. Returns to bed slowly. Warm blankets provided, denies further needs. Call light within reach.
--- NOTE | 2021-02-09 08:53 | NUR ---
bed linens changed
--- NOTE | 2021-02-09 09:20 | NUR ---
Dr. Canales in room to assess patient and discuss POC
--- NOTE | 2021-02-09 10:44 | NUR ---
Patient up to toilet to void, unmeasured void noted. Patient returns to bed. Patient states "I feel cold." Warm blankets provided. LR infusing at 75 mls/hr. Denies further needs, call light within reach.
--- NOTE | 2021-02-09 11:00 | NUR ---
OT in room working with patient
--- NOTE | 2021-02-09 11:45 | NUR ---
Dr. Kapoor in room to assess patient and discuss POC
--- NOTE | 2021-02-09 12:30 | NUR ---
Patient laying in bed, visiting with daughter. Lunch delivered. Patient up to chair with 1PA, warm blankets provided. Patient able to tolerate half of a strawberry vietnamese yogurt and a quarter cup of jello. Patient denies pain or nausea with meal, states "I'm going to quit while I'm ahead." Patient reports feeling sleepy after eating, assisted back to bed. Call light within reach.
--- NOTE | 2021-02-09 13:36 | NUR ---
Patient sleeping in bed, respirations even and unlabored. Daughter in room. Call light within reach.
--- NOTE | 2021-02-09 14:15 | NUR ---
Patient wakes up from nap, reports cramping in abdomen. Patient up to toilet, large formed BM produced. Patient reports cramping sensation is improved. Patient returns to bed, adjusted for comfort. Patient affect flat and slow to respond. Denies further needs, call light within reach.
--- NOTE | 2021-02-09 15:00 | NUR ---
Patient reports cramping in abdomen, heat pack is provided per patient request. 100mg of gabapentin given, patient educated on medication. Denies further needs, call light within reach.
--- NOTE | 2021-02-09 15:30 | NUR ---
Spoke with Nataliia, very flat affect. States she has problems and want her life to be done. Spouse passed last June and she no longer wants to live. Pt also has ascities and this is uncomfortable. [place] have an appt set with [facility] on February 21 for couseling. Daughter states pt has been suffering from dementia for 1 year. Pt also has complex grief. Pt stating shes in need of a cane. Plans to dc to home with daughter.
--- NOTE | 2021-02-09 15:45 | NUR ---
Patient states "I feel hungry." A raspberry yogurt and orange sherbert are ordered per patient request. Patient reports cramping in abdomen is improved with the heat pack. Daughter in room visiting. Denies further needs, call light within reach.
--- NOTE | 2021-02-09 17:35 | NUR ---
PT ARRIVES TO MED SURG FLOOR VIA WHEELCHAIR WITH DAUGHTER AT BEDSIDE. VITALS TAKEN, PT RESTING IN CHAIR LOOKING OUT WINDOW AND TALKING WITH DAUGHTER. STATES FEELING HUNGRY, ORDER TO KITCHEN COMPLETE. PT REPORTS BIGGEST CONCERN IS GETTING SLEEP TONIGHT, REQUESTS ROOM TO REMAIN QUIET AND DARK POSSIBLE. DAUGHTER ENGAGED IN CARE AND ATTENTIVE TO PT. CALL LIGHT IN REACH, WILL CONT TO MONITOR.
--- NOTE | 2021-02-09 18:50 | NUR ---
PT ABLE TO EAT 25% OF SOUP AND SHERBERT ICE CREAM. PT REPEATS DESIRE TO HAVE ROOM QUIET AND STATES THAT SHE FEELS OVERWHELMED WITH THE TRANSITION OF CARE TO MED SURG, NEW MEDS, CURRENT ILLNESS, ETC. PT REASSURED AT THIS TIME.
--- NOTE | 2021-02-09 19:05 | NUR ---
SHIFT REPORT FROM NURSE SALCIDO. PT UP IN CHAIR READING A BOOK. PT STATES SHE WAS ABLE TO EAT HALF HER SOUP AND FEELS "QUITE WELL" AFTER THAT. PT STATES THAT SHE WILL WANT HER ROOM "VERY DARK AND QUIET" LATER FOR SLEEP. PT DENIES NEEDS AT THIS TIME. CALL LIGHT WITHIN REACH.
--- NOTE | 2021-02-09 20:20 | NUR ---
IN ROOM FOR EXTENDED PERIOD TO REASSURE PT OF HER SAFETY ON THIS UNIT. PT IS CONCERNED THAT SHE WILL NOT HAVE A "GOOD NIGHT" HERE SINCE THIS IS A NEW ROOM TO HER. AFTER MUCH DISCUSSION AND EDUCATION, PT SEEMS CALMED. PT REQUESTS MORE SOUP BEFORE TAKING HER EVENING MEDS. CHARGE NURSE OBTAINS CHICKEN NOODLE SOUP FROM THE KITCHEN. CALL LIGHT WITHIN REACH.
--- NOTE | 2021-02-09 21:00 | NUR ---
PT FINISHED EATING SOUP. PT STATES SHE IS READY TO TAKE EVENING MEDS PREFERRABLY IN APPLESAUCE. PT TOOK EACH PILL ONE BY ONE IN APPLESAUCE AND STATES NO NAUSEA FOLLOWING. ASSIST[place] [facility] [place]. SCANT AMOUNT OF URINE IN BUCKET. EXTENSION LINE ADDED TO IV IN ATTEMPT TO MOVE IV POLE FARTHER FROM PT WHILE SHE SLEEPS. PT IS WORRIED THE SOUND OF THE IV PUMP WILL "DRIVE HER CRAZY". ASSESSMENT COMPLETE: ABDOMEN DISTENDED AND FIRM, PT REPORTS NO TENDERNESS WITH PALPATION. BLE 2+EDEMA. LUNG SOUNDS CLEAR/DIM. IVF INFUSING 75ML/HR. CMS INTACT. VSS. ASSISTED PT TO BED; AFTER MULTIPLE ATTEMPTS, PT IS ABLE TO GET IN A COMFORTABLE POSITION BUT THEN REPORTS SOME ACID REFLUX. HOB ELEVATED, WILL RECHECK PT IN 1HR TO REEVALUATE IF ACID REFLUX HAS RESOLVED. CALL LIGHT WITHIN REACH.
--- NOTE | 2021-02-09 22:30 | NUR ---
RECHECK PT RE:ACID REFLUX. PT REPORTS THAT [facility] HAS SUBSIDED. REQUESTS DRINK OF WATER WHICH IS PROVIDED. HOB LOWERED FOR PT'S COMFORT. CALL LIGHT WITHIN REACH. NO FURTHER NEEDS AT THIS TIME.
--- NOTE | 2021-02-10 01:01 | NUR ---
ROUNDS: PT APPEARS TO BE SLEEPING WITH EYES CLOSED, EVEN BREATHING NOTED. NO APPARENT SIGNS OF DISTRESS. CALL LIGHT WITHIN REACH.
--- NOTE | 2021-02-10 02:30 | NUR ---
CALL LIGHT ANSWERED. 1 PA. PATIENT WANTING TO USE THE TOILET. PATIENT GOT UP FROM BED WITH MINIMAL ASSIST. THIS AUDOGRAPH OPERATOR NOTICED PATIENT LEANING BACKWARD WHILE TRYING TO MAKE A STEP. OFFERED BEDSIDE COMMODE. PATIENT VOIDED 125ML DARK URINE. PATIENT STATED SHE HAS NOT DRINKING. THIS AUDOGRAPH OPERATOR ASKED WHAT KIND OF DRINK SHE LIKES. PATIENT STATED JUST WATER. PATIENT HAD SEVERAL SIPS OF WATER. PATIENT IS BACK IN BED. CALL LIGHT IN REACH AND SIDE TABLE.
--- NOTE | 2021-02-10 06:23 | NUR ---
ASSESSMENT COMPLETE. PT HAD VOIDED 100ML CONCENTRATED URINE. ABDOMEN REMAINS DISTENDED, SOFT, NON TENDER. BLE EDEMA 2+. PT TAKES SUCRALFATE WITH APPLESAUCE AND ENDS UP EATING HALF CUP OF APPLESAUCE, DRINKS SOME WATER. PT SETTLED BACK IN TO BED. CALL LIGHT WITHIN REACH.
--- NOTE | 2021-02-10 08:40 | NUR ---
SCHEDULED MEDICATIONS ADMINISTERED WITH STUDENT RN. ASSESSMENT COMPLETE. PT RESTING IN BED, SLOW TO RESPOND BUT IMPROVING COGNITION AND SPEECH NOTED. ABLE TO TAKE PILLS WITH APPLESAUCE. IVF INFUSING WNL. BOWEL TONES HYPOACTIVE, PT STOMACH DISTENDED BUT NONTENDER UPON PALPATION. 1+ PITTING EDEMA IN BILAT EXTREMITIES. PT STATES NO NEEDS AT THIS TIME, CALL LIGHT IN REACH
--- NOTE | 2021-02-10 09:27 | NUR ---
In to check on patient this morming, patient is very happy with the care that she is receiving. She stated "The staff members are incredible, everybody here is wonderful." Patient stated that she slept well "which is good, because I haven't been sleeping or eating." We discussed her oral intake, and she said that she is eating her cream of wheat, and she talkes her pills with apple sauce. Patient states that she has had "nausea" but she denies nausea at this time. Patient denies pain at this time also. Stating that her pain is "not really pain, but is pressure" and points to her abdomen. Pt denies any other concerns at this time.
--- NOTE | 2021-02-10 10:53 | NUR ---
PATIENT BACK TO BED AFTER WORKING WITH PT. LINENS CHANGED EARLIER. VITALS AND I&O'S CHARTED. FRESH WATER GIVEN. CALL LIGHT IN REACH. NO FURTHER NEEDS AT THIS TIME.
--- NOTE | 2021-02-10 14:01 | NUR ---
PT AMBULATING IN HALLWAY WITH TWO STUDENT RN'S, SUPERVISED BY THIS RN. PT TOLERATING WELL, USING CANE AND STATES FEELING WELL.
--- NOTE | 2021-02-10 14:30 | NUR ---
Spoke with Nataliia. She is resting in a dark room, states she ate and now is not feeling well. Asked if she would like me to call the nurse and she denies, states nurse is aware and she was encouaged to rest quietly.
--- NOTE | 2021-02-10 17:15 | NUR ---
Rounded on patient, reports satisfied with dinner selections and feeling well overall. No needs at this time, daughter at bedside.
--- NOTE | 2021-02-10 17:52 | NUR ---
PT REPORTS FEELING DISTENDED IN ABD AND EXPERIENCING NAUSEA, DISCOMFORT. NEW ORDERS FROM MD TO [facility] PT.
--- NOTE | 2021-02-10 18:48 | NUR ---
PATIENT UP TO BATHROOM AND BACK TO BED, 1PA CANE. PATIENT HAD BM BUT HAS LOW URINE, RN NOTIFIED. FRESH WATER GIVEN. VITALS AND I&O'S CHARTED, TEMP ELEVATED, RN NOTIFIED. CALL LIGHT IN REACH. NO FURTHER NEEDS AT THIS TIME.
--- NOTE | 2021-02-10 19:25 | NUR ---
BEDSIDE REPORT RECEIVED FROM NICK SALCIDO. pt RESTING IN BED, USING IS. STATES "I JUST NEED HELP BREATHING. REPOSITINED HIGHER IN BED. pt STATES "THAT'S BETTER". CALL LIGHT WITHIN REACH.
--- NOTE | 2021-02-10 21:12 | NUR ---
pt ASSESSMENT COMPLETE. ABD FIRM, DISTENDED, BOWEL TONES HYPOACTIVE X 4, pt STATES PASSING GAS. RATES PAIN 2/10 IN ABDOMEN "PRESSURE". DENIES PAIN WITH PALPATION. LUNG SOUNDS CLEAR, DIMINISHED BILATERALLY BASES. 2+ PITTING EDEMA BLE. SBA TO RESTROOM FOR SMALL UNMEASURED VOID AND SMEAR BM, ATTENDS CHANGED, GAIT UNSTEADY, CANE UTILIZED. BACK IN BED WITH LEGS ELEVATED ON PILLOWS. CALL LIGHT IN REACH. LIGHTS OFF IN ROOM.
--- NOTE | 2021-02-10 23:48 | NUR ---
CHECKED ON pt. RESTING IN BED WITH EYES CLOSED. BREATHING UNLABORED. LIGHTS OFF IN ROOM.
--- NOTE | 2021-02-11 02:15 | NUR ---
CHECKED ON pt. RESTING IN BED WITH EYES CLOSED, APPEARS TO BE SLEEPING, BREATHING IS UNLABORED. LIGHTS OFF IN ROOM.
--- NOTE | 2021-02-11 03:57 | NUR ---
CHECKED ON pt. RESTING IN BED WITH EYES CLOSED, RR 16. LIGHTS OFF IN ROOM.
--- NOTE | 2021-02-11 06:19 | NUR ---
pt AWAKENS TO VOICE WHEN RN ENTERS ROOM. STATES "I THINK I SLEPT ALL NIGHT LONG". DAILY STANDING WEIGHT. SBA WITH CANE TO RESTROOM, GAIT UNSTEADY, LEGS SHAKE WITH AMBULATION. UNMEASURED VOID, MISSED URINE HAT, SOUNDED THOUGH GOOD OUTPUT INTO TOILET. FRESH ATTENDS APPLIED, NO INCONTINENCE NOTED. BACK IN BED, ASSESSMENT COMPLETE. BOWEL TONES HYPOACTIVE, ABD FIRM, DISTENDED, pt DENIES PAIN. LEGS ELEVATED ON PILLOWS. CALL LIGHT IN REACH.
--- NOTE | 2021-02-11 07:33 | NUR ---
this rn received report from randall bingham. pt appears to be resting at this time with respirations noted.
--- NOTE | 2021-02-11 09:10 | NUR ---
THIS RN IN PTS ROOM TO GIVE PT HER MORNING MEDS AND DO MORNING ASSESSMENT. PT HAS A FLAT AFFECT AND CAN BE SLOW TO RESPOND. PT STATES THAT SHE IS HAVING SOME PAIN IN HER MID ABDOMEN THAT WRAPS HER FRONT ABDOMEN DUE TO INCREASED SWELLING. PT STATES THAT SHE IS DOING WELL OTHERWISE. THIS RN TRANSFERRED PT TO RESTROOM AND BACK. PT CAN BE UNSTEADY.
--- NOTE | 2021-02-11 09:46 | NUR ---
I had the opportunity with this patient this morning. She states "she is not feeling too good today." OT has been in the room, and made every effort to make her comfortable before leaving the room. Nataliia states that she is "Absolutely" happy with her care, stating give them an A+. they all go above and behond. She complains of "constant" pain in the "tummy area from the swelling." Pt denies other complaints of at this time.
--- NOTE | 2021-02-11 11:24 | NUR ---
this rn in pts room to get pts consent for her pericentesis. pt consents. pt back to bed after working with physcial therapy. pt has no concerns going forward, she just wants to feel better. pt also states that she is ready for some more real food.
--- NOTE | 2021-02-11 11:44 | PATH ---
[facility] [address] [place], [place] [address] Signed SPECIMEN(S): A ANTRUM/PYLORUS SPECIMEN SOURCE: A. ANTRUM/PYLORUS CLINICAL HISTORY: Hematemesis. Postop diagnosis: Gastritis; distal esophagitis; hiatal hernia at 30-37 cm. MICROSCOPIC DESCRIPTION: Histologic sections of all submitted blocks are examined by light microscopy. These findings, together with the gross examination, support the pathologic diagnosis. FINAL PATHOLOGIC DIAGNOSIS: Stomach, antrum/pylorus, biopsy: - Antral mucosa with reactive gastropathy. - Negative for Helicobacter organisms on HE stain. - Negative for dysplasia or malignancy. NAL:cml:C2NR GROSS DESCRIPTION: The specimen, labeled "Nataliia Scanlon, #1," and designated on the requisition "pylorus/antral biopsy," is received in formalin and consists of one lombardi soft tissue fragment that measures 0.4 cm in greatest dimension. The specimen is entirely submitted in cassette (A1). FB (under the direct supervision of a pathologist) The Gross Description was prepared using a voice recognition system. The report was reviewed for accuracy; however, sound-alike word errors, addition and/or deletions may occur. If there is any question about this report, please contact Client Services. PERFORMING LABORATORY: The technical component was performed by [facility], [address] [place] [id number] (Bag Press Operator: Amber Carranza MD; CLIA# [id number]). Professional interpretation was performed by [facility], [address] [place] [id number] (CLIA# [id number]). Diagnostician: Sarah Bronson MD Pathologist Electronically Signed 02/11/2021 PATIENT NAME: NATALIIA SCANLON PATHOLOGY DATE OF : 44 REPORT #: [id number] PHYSICIAN: [facility] PCP: RENETTA PUGA MD REPORT IS CONFIDENTIAL AND NOT TO BE RELEASED WITHOUT AUTHORIZATION [address] [address] Signed Copies: ~ PATIENT NAME: NATALIIA SCANLON PATHOLOGY DATE OF : 44 REPORT #: [id number] PHYSICIAN: [facility] PCP: RENETTA PUGA MD REPORT IS CONFIDENTIAL AND NOT TO BE RELEASED WITHOUT AUTHORIZATION
--- NOTE | 2021-02-11 13:00 | NUR ---
In to speak with Nataliia, she is leaving for a paracentesis in [place]. Will fu tomorrow.
--- NOTE | 2021-02-11 13:45 | NUR ---
THIS RN DISCUSSED WITH PTS DAUGHTER ABOUT PTS SLOWER RESPONSE FROM EARLIER IN THE DAY, PTS DAUGHTER STATES THAT IT IS NORMAL FOR PT IN THE AFTERNOONS TO DECLINE A BIT IN HER MENTATION AND ABILITY TO FORM SENTENCES.
--- NOTE | 2021-02-11 14:10 | NUR ---
PT ARRIVED BACK FROM [facility]. PT STATES THAT SHE FEELS MUCH BETTER. 6L OF FLUID REMOVAL. PT TRANSFERRED TO BATHROOM AND BACK TO BED.
--- NOTE | 2021-02-11 15:10 | NUR ---
VITALS TAKEN, PT ORDERED SNACK OF PUDDING AND APPLESAUCE FROM KITCHEN. PT REPORTS FEELING "BETTER" AFTER PROCEDURE. DAUGHTER IN ROOM, ALL QUESTIONS ANSWERED REGARDING PLAN OF CARE. NO FURTHER NEEDS AT THIS TIME
--- NOTE | 2021-02-11 15:45 | NUR ---
THIS RN IN PTS ROOM TO GIVE PT MEDS. PT ABLE TO TAKE MEDS WITH APPLESAUCE. PTS DAUGHTER IN ROOM. ALLANSWERED TO THE BEST OF THIS RN'S ABILITY
--- NOTE | 2021-02-11 18:04 | NUR ---
PATIENT SITTING UP IN BED, DAUGHTER AT BEDSIDE. I&OS CHARTED, CALL LIGHT AND PERSONAL ITEMS AT EASY REACH
--- NOTE | 2021-02-11 18:15 | NUR ---
THIS RN IN PTS ROOM TO TRANSFER PT TO RESTROOM. PT SLIGHTLY UNSTEADY AT THIS TIME.
--- NOTE | 2021-02-11 19:39 | NUR ---
PATIENT RESTING QUIETLY IN BED. PATIENT REQUESTING ALL EVENNG MEDS SOON POSSIBLE SHE WANTS TO GO TO SLEEP. INFORMED PATIENT I WILL BE BACK WITH MEDS SOON I CAN. PATIENT HAS NO OTHER CARE NEEDS AT THIS TIME. CALL LIGHT IS IN REACH.
--- NOTE | 2021-02-11 22:45 | NUR ---
PATIENT JUST UP TO THE BATHROOM AND BACK TO BED AND KIMBERLY CORRAL WAS IN THE ROOM. ASSESSMENT DONE AND PATIENT TOOOK ALL PILLS ONE PILL AT A TIME IN SOME APPLESAUCE. ALLYVEN OVER PHILLIP PROMINENCE ON PATIENT'S BACK STILL IN PLACE. PATIENT'S WATER REFILLED WITH NO ICE. PATIENT DOES NOT WANT TO BE DISTURBED UNTIL MORNING UNLESS NECESSARY OR IF SHE NEEDS TO USE THE RESTROOM. EXOLAINED THAT EXCEPT FOR MANDATORY CHECKS WE WOULD TRY TO DISTURB HER LITTLE POSSIBLE. PATIENT VERBALIZED UNDERSTANDING. CALL LIGHT IN REACH.
--- NOTE | 2021-02-11 22:48 | NUR ---
PATIENT RESTING QUIETLY IN BED, LIGHTS OUT, EYES CLOSED, RESPIRATIONS ARE REGULAR AND EVEN. CALL LIGHT IN REACH.
--- NOTE | 2021-02-12 00:05 | NUR ---
PATIENT RESTING QUIETLY, RESPIRATIONS REGULAR AND EVEN, EYES CLOSED, CALL LIGHT IN REACH.
--- NOTE | 2021-02-12 02:00 | NUR ---
PATIENT CALLED WANTING TO USE THE RESTROOM. THIS RN ASSISTED PATIENT TO THE BATHROOM WITH HER CANE. PATIENT WILL PULL CALL LIGHT WHEN FINISHED. CALL LIGHT IS IN REACH.
--- NOTE | 2021-02-12 02:20 | NUR ---
PATIENT ASSISTED BACK TO BED BY KIMBERLY CORRAL, AND PATIENT POSTIONED TO COMFORT. PATIENT'S CALL LIGHT IS IN REACH.
--- NOTE | 2021-02-12 03:32 | NUR ---
PATIENT RESTING QUIETLY IN SEMI-FOWLERS POSITION, EYES CLOSED, RESPIRATIONS REGULAR AND EVEN, CALL LIGHT IS IN REACH.
--- NOTE | 2021-02-12 05:20 | NUR ---
IN TO GET VITALS, PT UO TO VOID AT THIS TIME, 1PA/SBA WITH CANE, NO FURTHER NEEDS AT THIS TIME
--- NOTE | 2021-02-12 05:41 | NUR ---
PATIENT JUST FINISHED GETTING LABS DRAWN. PATIENT IS DOWN 6.3KG FROM YESTERDAY PER STANDNING SCALE. PATIENT HAS SLEPT WHEN NOT USING THE RESTROOM. PATIENT'S LEG SWELLING IS DOWN. (SEE ASSESSMENT) PATIENT'S BOWEL TONES CAN BE HEARD WITH THE EXCESS FLUID BEING OFF PATIENT'S BELLY FROM PARACENTESIS. PATIENT HAS NO C/O PAIN OR NAUSEA. CALL LIGHT IS IN REACH.
--- NOTE | 2021-02-12 07:10 | NUR ---
SHIFT REPORT FROM BUD ROMERO INCLUDED: pt had an uneventful evening. pt can only tolerate one pill at a time and usually only if crushed in applesauce. 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 pt VSS through shift boss. pt currently in bed, alert and oriented. pt given menu and instructed on how to order breakfast. pt encouraged to use call light if any help is needed to order. pt in bed, table and call light within reach.
--- NOTE | 2021-02-12 08:00 | NUR ---
ASSESSMENT + MED PASS + BREAKFAST pt able to order her breakfast this morning, and reports she is very hungry. pt assessment complete, VSS. pt denies pain and nausea at this time. pt is alert and oriented x4. pt reports that she "thinks" she had a latge BM yesterday morning. pt able to take gabapentin capsule without difficulty, but requested all her other meds be crushed in applesauce so she "wouldn't choke on them again". pt able to take all other meds in applesauce this morning. pt is currently showing no difficulty swallowing as she eats her breakfast. pt denies further needs at this time. table and call light in reach, daughter at bedside.
--- NOTE | 2021-02-12 08:30 | NUR ---
Per 0830 report, pt will dc today to home with daughter. UPdated pt's daughter works at [employer] and is more than likely working today.
--- NOTE | 2021-02-12 09:30 | NUR ---
ROUNDING pt out of room working with Shaun physical therapist at this time.
--- NOTE | 2021-02-12 10:41 | NUR ---
ROUNDING pt in bed, visiting with daughter at this time. denies pain and nausea. pt has table and call light within reach.
--- NOTE | 2021-02-12 11:20 | NUR ---
MED PASS pt was unable to take her sucralfate tablet. pharmacy called and Chayo from pharmacy switched her med from tablet to oral liquid. pt able to take med now without difficulty. pt currently having conversation with Dr Correa at this time. pt and her daughter being educated by MD on pts condition and cares. all questions answered by MD at this time. pt in bed, lunch ordered, table and call light within reach.
[2021-02-12] MEDS ORDERED: SPIRONOLACTONE25 MG PO (11:49)
[2021-02-12] MEDS ORDERED: QUETIAPINE FUMA25 MG PO (11:51)
[2021-02-12] MEDS ORDERED: SUCRALFATE1 GM/10 ML PO (11:53)
[2021-02-12] MEDS ORDERED: PANTOPRAZOLE SO40 MG PO (11:53)
[2021-02-12] MEDS ORDERED: SENNA8.6 MG PO (11:54)
[2021-02-12] MEDS ORDERED: MIRALAX17 GM PO (11:55)
[2021-02-12] MEDS ORDERED: GABAPENTIN100 MG PO (11:56)
--- NOTE | 2021-02-12 12:15 | NUR ---
ROUNDING pt in bed, having lunch and visiting with daughter at this time. pt denies pain and nausea at this time. table and call light within reach.
--- NOTE | 2021-02-12 13:00 | NUR ---
ROUNDING pt assisted back to bed. pt denies pain and nausea at this time. pt in bed, positioned to comfort. table and call light within reach.
--- NOTE | 2021-02-12 14:13 | NUR ---
PATIENT GETTING READY TO GO HOME. SHE LIVES WITH HER DAUGHTER, ADRIANO. PATIENT WAS HOPING ADRIANO WOULD BE HERE TO TALK WITH ME ABOUT PATIENT'S DIET FOR HOME. ANGELO CAME IN AFTER A FEW MINUTES. PATIENT STATES SHE DOES NOT EAT FAST FOOD OR MUCH PROCESSED FOOD AT HOME. SHE IS AWARE OF THIS LOW-SODIUM DIET AND I THINK SHE WAS THINKING A "NO SODIUM DIET." I EXPLAINED THAT NO-SODIUM DIET WOULD BE IMPOSSIBLE AND NOT NECESSARY. THE MAIN CONCERN FOR HER IS TO AVOID VERY HIGH SODIUM FOODS THAT WILL CAUSE FLUID RETENTION DUE TO THE CIRRHOSIS. PROVIDED SUGGESTIONS FOR BALANCED MEALS AND SNACK IDEAS. ALSO DISCUSSED HAVING QUICK AND EASY ITEMS AVAILABLE FOR SNACKS, SUCH YOGURT, LOW-SODIUM CRACKERS, STRING CHEESE, HARD-BOILED EGGS AND UNSALTED NUTS. ADRIANO ASKED WHAT ARE SOME WAYS TO ADD PROTEIN THAT ISN'T MEAT SO I SUGGESTED ADDING PEANUT BUTTER TO TOAST, SNACKING ON NUTS, ADDING CHEESE TO EGGS, VEGGIES, OR PASTA, ADDING BEANS TO MEALS AND EVEN A NUTRITION DRINK WITH A HIGHER PROTEIN CONTENT. REALLY ENCOURAGED PATIENT TO EAT SEVERAL MEALS/SNACKS THROUGHOUT THE DAY. HANDOUTS ON CIRRHOSIS NUTRITION THERAPY AND LOW-SODIUM NUTRITION THERAPY PROVIDED. I TOLD ADRIANO TO CALL ME IF SHE HAS ANY QUESTIONS. MY OFFICE # IS ON THE HANDOUTS.
--- NOTE | 2021-02-12 14:54 | NUR ---
Face sheet, order, H&P, DC summary, PT/OT notes faxed to [facility].
== END 2021-02-12 16:10 | disposition home or self-care (01) | DRG 368 ==
LOC: ED 20:33 → CCU 22:26 → MS 02-09 17:29
PROVIDERS: Colon & Rectal Surgery; ADMIT Internal Medicine; ATTEND Internal Medicine
PROC: 0DB68ZX Excision of Stomach, Via Natural or Artificial Opening Endoscopic, Diagnostic (ICD-10-PCS; principal; 2021-02-08 11:03)
PROC: 0W9G3ZZ Drainage of Peritoneal Cavity, Percutaneous Approach (ICD-10-PCS; 2021-02-11)
DX: K20.91 Esophagitis, unspecified with bleeding (principal); K29.71 Gastritis, unspecified, with bleeding; E46 Unspecified protein-calorie malnutrition; I51.81 Takotsubo syndrome; E87.1 Hypo-osmolality and hyponatremia; Z20.822 Contact with and (suspected) exposure to COVID-19; K44.9 Diaphragmatic hernia without obstruction or gangrene; K74.60 Unspecified cirrhosis of liver; E03.9 Hypothyroidism, unspecified; K21.9 Gastro-esophageal reflux disease without esophagitis; E86.0 Dehydration; F43.20 Adjustment disorder, unspecified; I10 Essential (primary) hypertension; E78.5 Hyperlipidemia, unspecified; R14.0 Abdominal distension (gaseous); T50.1X5A Adverse effect of loop [high-ceiling] diuretics, initial encounter; Z95.0 Presence of cardiac pacemaker; Z79.899 Other long term (current) drug therapy; Z68.23 Body mass index [BMI] 23.0-23.9, adult
CPT/HCPCS: 36415; 49083; 80048; 80053; 82140; 82607; 83735; 84425; 85025; 86677; 86850; 86900; 86901; 96374; 97116; 97162; 97165; 97535; 99285-25; C9113; C9803; J1940; J2060; J2405; J2704; J7121; P9047; U0003

== ENCOUNTER 2021-02-25 08:52 | Emergency (ER) | payer MEDICARE ==
[~2021-02-25] VITALS: Ht 160 cm; Wt 61.2 kg
[~2021-02-25 08:52] MED LIST changes: +GABAPENTIN100 MG PO; +MIRALAX17 GM PO; +SENNA8.6 MG PO; +SPIRONOLACTONE25 MG PO; +SUCRALFATE1 GM/10 ML PO
[2021-02-25] MEDS ORDERED: METOCLOPRAMIDE H5 MG PO (10:57)
[2021-02-25] MEDS ORDERED: QUETIAPINE FUM100 MG PO (10:59)
[2021-02-25] MEDS ORDERED: MELATONIN10 M2 PO (11:00)
== END 2021-02-25 13:17 | disposition home or self-care (01) ==
LOC: ED 08:52
DX: R18.8 Other ascites (principal); K21.9 Gastro-esophageal reflux disease without esophagitis; Z79.899 Other long term (current) drug therapy
CPT/HCPCS: 49083; 80053; 82945; 84157; 85025; 85610; 89051; 99284-25